=== PATIENT | male | born 1990 | race Caucasian/White ===

== ENCOUNTER 2017-08-29 10:08 | Outpatient (CLI) | payer BC | END 2017-08-29 10:09 | disposition home or self-care (01) | LOC: BICULT 10:08 | PROVIDERS: ATTEND Internal Medicine Rheumatology | DX: R74.8 Abnormal levels of other serum enzymes (principal) | CPT/HCPCS: 76705 ==

== ENCOUNTER 2017-10-04 09:36 | Outpatient (CLI) | payer BC ==
[2017-10-04] MEDS ORDERED: ISOVUE-370 76%-LOCM 1 ML ONE (13:54)
== END 2017-10-04 09:37 | disposition home or self-care (01) ==
LOC: BICCT 09:36
PROVIDERS: ATTEND Family Medicine
DX: M54.5 Low back pain (principal)
CPT/HCPCS: 74178

== ENCOUNTER 2018-06-14 09:14 | Emergency (ER) | payer BC ==
[2018-06-14 10:27] LABS: #Eosinphils 0.1 thou/uL (0.0-0.7); #Lymphocytes 1.7 thou/uL (1.20-3.40); #Monocytes 0.5 thou/uL (0.11-0.59); #Neutrophils 5.6 thou/uL (1.40-6.50); %Basophils 0.1 % (0.0-1.0); %Eosinophils 0.9 % (0.0-10.0); %Lymphocytes 21.2 % (21.0-51.0); %Monocytes 6.6 % (0.0-10.0); %Neutrophils 71.3 % (42.0-75.0); Bilirubin Negative (Negative); Blood, Urine Negative (Negative); Clarity CLEAR (Clear); Glucose, Urine (Dipstick) Negative (Negative); Hemoglobin 14.9 g/dL (14.0-18.0); Leukocyte Negative (Negative); Mean Corpuscular HGB CONC 35.8 g/dL (32.0-36.0); Mean Corpuscular Hemoglobin 30.5 pg (27.0-31.0); Mean Corpuscular Volume 85.2 fL (78.0-98.0); Mean Platelet Volume 8.6 fL (7.4-10.4); Nitrite Negative (Negative); Platelet Count 266 thou/uL (130-400); Protein, Urine (Dipstick) Negative (Neg-Trace); RBC Distribution Width 11.4 % (11.5-14.5); Red Blood Cell (RBC) Count 4.89 mill/uL (4.70-6.10); Specific Gravity, Urine 1.026 (1.002-1.036); Urobilinogen 0.2 mg/dL (0.2-1.0); White Blood Cell (WBC) Count 7.9 thou/uL (4.8-10.8); pH, Urine 6.5 (5.0-9.0)
--- NOTE | 2018-06-14 10:42 | CT ---
Noncontrast CT abdomen and pelvis 06/14/2018 HISTORY: Right flank pain. COMPARISON: 10/22/2016. FINDINGS: There is a retrocecal appendix, and the appendix extends into the right upper quadrant and is adjacen t to the medial aspect of the right hepatic lobe. The distal portion of the appendix measures 10 mm i n diameter, and the shetty of the appendix appear to be thickened. There is minimal adjacent periappen diceal inflammatory changes also identified. Findings are suggestive of early acute appendicitis. No free intraperitoneal gas or periappendiceal fluid collection is seen. No renal or ureteral calculi are seen bilaterally, and there is no evidence of hydronephrosis. The visualized lung bases, liver, spleen, pancreas, bilateral adrenal glands, kidneys, and decompress ed urinary bladder demonstrate a grossly normal nonenhanced CT appearance. No free fluid or free intraperitoneal gas is seen in the abdomen or pelvis. Osseous structures have a normal CT appearance. IMPRESSION: 1. Findings suggestive of early acute appendicitis. 2. Above findings discussed with Dr. Bo in the emergency Department on 06/14/2018 at 1036 hours.
[2018-06-14 10:46] LABS: Anion Gap 12 mmol/L (10-20); BUN (Urea Nitrogen) 19 mg/dL (8.9-20.6); Calc. Creatinine Clearance 0 mL/min (70-130); Calcium 9.6 mg/dL (7.8-10.44); Carbon Dioxide 27 mmol/L (22-29); Chloride 104 mmol/L (98-107); Estimated GFR-MDRD Greater than 90; Glucose 102 mg/dL (70-105); Sodium 139 mmol/L (136-145)
[2018-06-14] MEDS ORDERED: Ondansetron PF 4 MG/2 ML Vial ONE ×2 (10:52→14:44)
[2018-06-14] MEDS ORDERED: Morphine 4 MG/ML VIAL ONE (10:53)
[2018-06-14] MEDS ORDERED: Piperacillin/Tazobactam 4.5 GM VIAL ONE (11:25)
[2018-06-14] MEDS ORDERED: Bupivacaine/Epinephrine 0.25% 30 ML VIAL ONE (12:01)
--- NOTE | 2018-06-14 12:02 | HP ---
HISTORY OF PRESENT ILLNESS: Mr. Good is a 27-year-old man, who presented to the Emergency Department with a 24-hour history of right flank pain. The patient admits some nausea, but no emesis. He admits to constipation. No diarrhea. The patient denies any fevers or chills. The patient presented to the Emergency Department thinking he had kidney stones. Workup today included a CT scan of the abdomen and pelvis, following which the patient was referred to General Surgery Service. At the time of my evaluation, he rates his pain at 7/10. He has a history of chronic back pain. 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 Other pertinent past medical history includes chronic depression. PAST SURGICAL HISTORY: Pertinent for left shoulder and right knee arthroplasties. The patient is an [employer] and is currently employed as a property officer. He is , lives at home with his . He denies any cigarette smoking or illicit drug abuse. Admits to occasional intake of ethanol in moderate amounts. FAMILY HISTORY: Pertinent for some maternal relatives with gynecological cancer. Otherwise, denies any family history of diabetes mellitus, hypertension, heart disease, or inflammatory bowel disease. PRE-HOSPITAL MEDICATIONS: Includes; 1. Tramadol extended release 300 mg p.o. t.i.d. p.r.n. 2. Tylenol No. 3, which he takes occasionally for back pain. 3. He also takes fluoxetine for chronic depression. ALLERGIES: THE PATIENT DENIES ANY KNOWN DRUG ALLERGIES. REVIEW OF SYSTEMS: Ten-point review of systems essentially unremarkable except as stated in past medical history and chief complaint. PHYSICAL EXAMINATION: GENERAL: This reveals a 27-year-old normally developed man, who is otherwise coherent, interactive, and appears stated age. The patient is alert and oriented x3, appears to be in no acute distress at the time of my evaluation. VITAL SIGNS: Today include blood pressure 131/77, pulse is 74, respiratory rate is 18, temperature is 98.8 degrees Fahrenheit, and oxygen saturation 97% on room air. HEENT: Reveals normocephalic and atraumatic. Pupils are equal, round, and reactive to light and accommodation. HEART: Reveals regular rate and rhythm. No murmurs or gallops auscultated. LUNGS: Clear to auscultation bilaterally. Breathing, regular and nonlabored. ABDOMEN: Soft and moderately distended. He has right lower quadrant tenderness at McBurney's. He has a positive Rovsing sign. Liver and spleen nonpalpable below costal margin. EXTREMITIES: Reveal 2+ radial and pedal pulses bilaterally. No ankle edema is present. NEUROLOGIC: Reveals no focal deficits present. LABORATORY FINDINGS: Today includes a CBC with 7900 white blood cells and hemoglobin and hematocrit of 14.9 and 41.7 respectively. Platelet count is 266,000. Metabolic profile; sodium 139, potassium 4.0, chloride is 104, bicarb is 27, BUN 19, creatinine 0.86, and glucose 102. Urinalysis is essentially unremarkable. I have personally reviewed the CT scan of the abdomen and pelvis, which is remarkable for dilated retrocecal appendix with periappendiceal fat stranding. There is no pneumoperitoneum or significant free fluid present. IMPRESSION: Acute retrocecal appendicitis. PLAN: Laparoscopic appendectomy. Above findings and plan has been discussed with the patient. Informed him of the risks and benefits of the proposed surgery to include, but not limited to bleeding, infection, injury to bowel or surrounding structures. The patient indicates understanding of information I have given him today. I have answered his questions. The patient is going to consent for this admission and surgical intervention. Job ID: [id number]
[2018-06-14] MEDS ORDERED: Fentanyl 100 MCG/2 ML VIAL ONE ×4 (12:10→15:34)
[2018-06-14] MEDS ORDERED: Lidocaine 2% Jelly 5 ML TUBE ONE (12:12)
[2018-06-14] MEDS ORDERED: Famotidine/PF 20 mg/2ml Vial ONE (12:19)
[2018-06-14] MEDS ORDERED: Midazolam HCl 2 mg/2 ml Vial ONE (12:25)
[2018-06-14] MEDS ORDERED: HYDROmorphone 2 MG/ML VIAL ONE (14:15)
[2018-06-14] MEDS ORDERED: Glycopyrrolate 0.2 MG/ML 5 ML SYRINGE ONE (14:44)
[2018-06-14] MEDS ORDERED: Ketorolac Tromethamine 30 MG/ML VIAL ONE (14:44)
[2018-06-14] MEDS ORDERED: PROPOFOL 200 MG/20 ML VIAL ONE (14:44)
[2018-06-14] MEDS ORDERED: PHENYLEPHRINE-NS 100 MCG/ML 10 ML SYRINGE ONE (14:44)
[2018-06-14] MEDS ORDERED: Dexamethasone 20 MG/5 ML VIAL ONE (14:44)
[2018-06-14] MEDS ORDERED: Rocuronium Bromide 10 MG/ML (10ML VIAL) ONE (14:44)
[2018-06-14] MEDS ORDERED: ePHEDrine 50 MG/ML VIAL ONE (14:44)
[2018-06-14] MEDS ORDERED: Lidocaine 1% PF 5 ML VIAL ONE (14:44)
--- NOTE | 2018-06-14 16:59 | OP ---
DATE OF PROCEDURE: 06/14/2018 PREOPERATIVE DIAGNOSES: Acute retrocecal appendicitis with localized peritonitis. POSTOPERATIVE DIAGNOSES: Acute retrocecal appendicitis with localized peritonitis. OPERATION PERFORMED: Laparoscopic appendectomy. ANESTHESIA: General endotracheal. ESTIMATED BLOOD LOSS: 10 mL. FLUIDS GIVEN: 1600 mL crystalloids. COUNTS: Sponge and instrument counts were verified as correct x2. COMPLICATIONS: None apparent to operation. INDICATIONS FOR OPERATION: This is a 27-year-old man, who presented with a 24-hour history of right flank pain. Clinical radiographic examination was consistent with acute retrocecal appendicitis without evidence of perforation. The patient was brought to the operating room for appendectomy. Findings are consistent with a retrocecal almost right upper quadrant positioned appendix with the tip of the appendix abutting the gallbladder. No evidence of perforation. DESCRIPTION OF PROCEDURE: Informed consent was obtained from the patient, he was brought to the operating room and placed in supine position. Following general anesthesia, abdomen was sterilely prepped and draped in usual fashion. The skin below the umbilicus was infiltrated with 0.25% Marcaine with epinephrine. A small curvilinear infraumbilical incision was made using 11 scalpel. Umbilical stalk grasped with Nathen and elevated. Veress needle was inserted through the incision and placed in the peritoneal cavity through which the abdomen was insufflated with 3 L of CO2 gas. Intraabdominal pressure was noted at 2 mmHg. Following abdominal insufflation, Veress needle was removed and a 5 mm trocar introduced using a Visiport under laparoscopy. Laparoscopy confirmed proper placement of the port, no injuries to underlying structures. Additional laparoscopy revealed the right lower quadrant with omental and small bowel adhesions to the right lateral gutter. Under direct laparoscopy, two 5 mm suprapubic and left lower quadrant ports were placed after the overlying skin were infiltrated 0.25% Marcaine with epinephrine. Appropriate incision was made. The patient was placed in a Trendelenburg position, rotated to his left. I then used a Postiniige grasper through the left lower quadrant port to bluntly take down omental adhesions to reveal the distal ileum, which was completely adhered to the right lateral gutter. It was taken down sharply using Endo Avila. Once the distal ileum was mobilized medially, small bowel was run from the ileocecal junction to proximal 2 feet finding no Meckel diverticulum. A retrocecal appendix was then traced to the right upper quadrant and was bluntly dissected free from surrounding structures. Using Mindy type of ligature device, the mesoappendix was then serially divided with good hemostasis. Appendix was divided at the appendiceal-cecal junction between endo-loops. The appendix was delivered of the abdominal cavity using the EndoCatch. Operative site was inspected for good hemostasis. Finding no other pathology, the fascia of the left lower quadrant port was closed using 0 Vicryl suture and Endoclosure device on the laparoscopy. Abdomen was desufflated. All ports and instruments were removed and accounted. Skin incisions closed using 4-0 Monocryl suture in subcuticular fashion. Dermabond was applied over incisional closure. The patient tolerated the operation without any apparent complication and was returned to recovery room in satisfactory condition. Job ID: [id number]
== END 2018-06-14 17:00 | disposition home or self-care (01) ==
LOC: ERS 09:14
DX: K35.80 Unspecified acute appendicitis (principal); J45.909 Unspecified asthma, uncomplicated; Z79.899 Other long term (current) drug therapy
CPT/HCPCS: 74176; 80048; 81003; 85025; 87086; 88304; 96374; 96375; J0131; J1100; J1170; J1885; J2001; J2250; J2270; J2405; J2543; J2704; J3010; J3490; S0028

== ENCOUNTER 2019-02-18 12:56 | Emergency (ER) | payer BC | END 2019-02-18 14:32 | disposition left against medical advice (07) | LOC: ERS 12:56 | DX: Z53.21 Procedure and treatment not carried out due to patient leaving prior to being seen by health care provider (principal) ==

== ENCOUNTER 2019-02-19 14:03 | Outpatient (CLI) | payer BC ==
--- NOTE | 2019-02-19 14:40 | RAD ---
EXAM: XR Pelvis AP STANDARD PROVIDED CLINICAL HISTORY: Ankylosing spondylitis. COMPARISON: CT abdomen and pelvis on 06/14/2018 FINDINGS: Sacroiliac joints have a symmetric appearance bilaterally, and the sacroiliac joint spaces are symmet maggy in appearance. There is no evidence of fusion involving either sacroiliac joint. No fracture or dislocation is seen. A calcific density is seen just superior to the right greater trochanter which w as also seen on the prior CT exam. IMPRESSION: No acute osseous abnormality. Sacroiliac joints are symmetric in appearance bilaterally without findi ngs to suggest fusion of either sacroiliac joint.
== END 2019-02-19 14:04 | disposition home or self-care (01) ==
LOC: BICRAD 14:03
PROVIDERS: ATTEND Physician Assistant
DX: M45.9 Ankylosing spondylitis of unspecified sites in spine (principal)
CPT/HCPCS: 72170

== ENCOUNTER 2019-02-23 13:21 | Outpatient (CLI) | payer BC ==
--- NOTE | 2019-02-23 14:14 | MRI ---
EXAM: MRI Lumbar Spine WO Con PROVIDED CLINICAL HISTORY: Back pain COMPARISON: None FINDINGS: 5 lumbar vertebral bodies are assumed. Lumbar alignment appears normal. Vertebral body heights appear maintained. Intervertebral disc space heights appear maintained. The conus medullaris is normal in signal and terminates at an appropriate level. Visualized extraspinal soft tissues appear unremarkabl e. Regional marrow and muscular signal appear normal. There is no significant central canal or foraminal narrowing apparent throughout. Mild facet arthritis bilaterally at L3-4. IMPRESSION: No significant central canal or foraminal narrowing apparent.
== END 2019-02-23 13:22 | disposition home or self-care (01) ==
LOC: TBSIIMAG 13:21
PROVIDERS: ATTEND Physician Assistant
DX: M45.9 Ankylosing spondylitis of unspecified sites in spine (principal)
CPT/HCPCS: 72148

== ENCOUNTER 2019-03-21 13:00 | Emergency (ER) | payer BC ==
--- NOTE | 2019-03-21 14:12 | RAD ---
EXAM: Chest 2 views: HISTORY: Hypertension and dizziness COMPARISON: 03/01/2008 FINDINGS: There is a normal-sized cardiomediastinal silhouette. There is no evidence of consolidation, mass, or pleural effusion. The bones are unremarkable. IMPRESSION: No evidence of acute cardiopulmonary disease
[2019-03-21 14:17] LABS: #Eosinphils 0.1 thou/uL (0.0-0.7); #Lymphocytes 2.5 thou/uL (1.20-3.40); #Monocytes 0.6 thou/uL (0.11-0.59); #Neutrophils 4.7 thou/uL (1.40-6.50); %Basophils 0.5 % (0.0-1.0); %Eosinophils 1.8 % (0.0-10.0); %Lymphocytes 31.4 % (21.0-51.0); %Monocytes 7.8 % (0.0-10.0); %Neutrophils 58.5 % (42.0-75.0); Hemoglobin 13.9 g/dL (14.0-18.0); Mean Corpuscular HGB CONC 34.6 g/dL (32.0-36.0); Mean Corpuscular Hemoglobin 29.7 pg (27.0-31.0); Mean Corpuscular Volume 85.8 fL (78.0-98.0); Mean Platelet Volume 8.2 fL (7.4-10.4); Platelet Count 266 thou/uL (130-400); RBC Distribution Width 12.3 % (11.5-14.5); Red Blood Cell (RBC) Count 4.67 mill/uL (4.70-6.10); White Blood Cell (WBC) Count 8.1 thou/uL (4.8-10.8)
[2019-03-21 14:41] LABS: ALT (SGPT) 17 U/L (8-55); AST (SGOT) 15 U/L (5-34); Albumin 4.3 g/dL (3.5-5.0); Alkaline Phosphatase 70 U/L (40-110); Anion Gap 12 mmol/L (10-20); BUN (Urea Nitrogen) 12 mg/dL (8.9-20.6); Bilirubin, Total 0.3 mg/dL (0.2-1.2); CK (CPK) 60 U/L (30-200); Calc. Creatinine Clearance 0 mL/min (70-130); Calcium 9.1 mg/dL (7.8-10.44); Carbon Dioxide 27 mmol/L (22-29); Chloride 106 mmol/L (98-107); Estimated GFR-MDRD Greater than 90; Globulin 3.1 g/dL (2.4-3.5); Glucose 89 mg/dL (70-105); Protein, Total 7.4 g/dL (6.0-8.3); Sodium 141 mmol/L (136-145)
[2019-03-21] MEDS ORDERED: HYDROcodone/Acetaminophen 10/325 mg Tablet ONE (15:15)
--- NOTE | 2019-03-24 10:01 | EKG ---
Test Reason : Blood Pressure : / mmHG Vent. Rate : 101 BPM Atrial Rate : 101 BPM P-R Int : 154 ms QRS Dur : 102 ms QT Int : 350 ms P-R-T Axes : 028 009 023 degrees QTc Int : 453 ms Sinus tachycardia Cannot rule out Anterior infarct , age undetermined Abnormal ECG Confirmed by CHARLEE BRADLEY D.O. ([id number]), assignment desk editor BENTLEY GARCIA ([id number]) on 03/24/2019 10:01:02 AM Referred By: Confirmed By:CHARLEE BRADLEY D.O.
== END 2019-03-21 15:24 | disposition home or self-care (01) ==
LOC: ERS 13:00
DX: I10 Essential (primary) hypertension (principal); F32.9 Major depressive disorder, single episode, unspecified; M19.90 Unspecified osteoarthritis, unspecified site
CPT/HCPCS: 36415; 71046; 80053; 82550; 84484; 85025; 93005; 96360

== ENCOUNTER 2020-03-10 00:36 | Emergency (ER) | payer OTHER ==
[2020-03-10] MEDS ORDERED: Diazepam 5 MG TAB ONE (01:35)
[2020-03-10] MEDS ORDERED: Ketorolac Tromethamine 30 MG/ML VIAL ONE (01:35)
[2020-03-10] MEDS ORDERED: Morphine 4 MG/ML VIAL ONE (01:35)
== END 2020-03-10 02:13 | disposition home or self-care (01) ==
LOC: ERS 00:36
DX: G89.29 Other chronic pain (principal); M54.5 Low back pain; Z79.899 Other long term (current) drug therapy; Z79.891 Long term (current) use of opiate analgesic
CPT/HCPCS: 96372; 99283; J1885; J2270

== ENCOUNTER 2020-03-24 10:34 | Outpatient (CLI) | payer OTHER ==
--- NOTE | 2020-03-24 12:02 | MRI ---
MR the lumbar spine without contrast: 03/24/2020 History: Low back pain with left lower extremity radiculopathy COMPARISON: 02/23/2019 TECHNIQUE: Multiplanar multisequence MR images were obtained of lumbar spine without IV contrast FINDINGS: On the basis of 5 lumbar type vertebral bodies, conus medullaris terminates at theT12 level. Sagittal STIR imaging demonstrates no focal area of osseous marrow edema. T12-L1:Intervertebral disc height and signal intensity within normal limits with no significant centr al canal or neural foraminal stenosis. L1-2:Intervertebral disc height and signal intensity within normal limits with no significant central canal or neural foraminal stenosis. L2-3:Intervertebral disc height and signal intensity within normal limits with no significant central canal or neural foraminal stenosis. L3-4:Intervertebral disc height and signal intensity within normal limits. Mild bilateral facet hyper trophy with no significant central canal or neural foraminal stenosis. L4-5:There is new mild disc space narrowing and new disc desiccation. New mild disc bulge with a new small left paracentral disc protrusion which abuts the left L5 nerve root. Mild central canal stenosis/left lateral recess stenosis. No significant neural foraminal stenosis. L5-S1:Mild bilateral facet hypertrophy with no significant central canal or neural foraminal stenosis . Image retroperitoneal structures demonstrateno acute findings. IMPRESSION: Disc disease at L4-5 as detailed above, new when compared to the prior exam.
== END 2020-03-24 10:35 | disposition home or self-care (01) ==
LOC: BICMRI 10:34
PROVIDERS: ATTEND Specialist
DX: M51.16 Intervertebral disc disorders with radiculopathy, lumbar region (principal)
CPT/HCPCS: 72148

== ENCOUNTER 2020-04-17 09:29 | Day surgery (SDC) | payer OTHER ==
[2020-04-14 11:03] VITALS: BMI 33.7
[2020-04-17] MEDS ORDERED: Fentanyl 250 MCG/5 ML VIAL ONE (10:00)
[2020-04-17] MEDS ORDERED: Midazolam HCl 2 mg/2 ml Vial ONE (10:21)
[2020-04-17] MEDS ORDERED: Thrombin 5000 UNITS/5 ML VIAL ONE (10:39)
[2020-04-17] MEDS ORDERED: Ondansetron PF 4 MG/2 ML Vial ONE (13:02)
[2020-04-17] MEDS ORDERED: Glycopyrrolate 0.2 MG/ML 5 ML SYRINGE ONE (13:02)
[2020-04-17] MEDS ORDERED: Rocuronium Bromide 10 MG/ML (10ML VIAL) ONE (13:02)
[2020-04-17] MEDS ORDERED: PROPOFOL 200 MG/20 ML VIAL ONE (13:02)
[2020-04-17] MEDS ORDERED: Lidocaine 1% PF 5 ML VIAL ONE (13:02)
[2020-04-17] MEDS ORDERED: PHENYLEPHRINE-NS 100 MCG/ML 10 ML SYRINGE ONE (13:02)
[2020-04-17] MEDS ORDERED: Dexamethasone 20 MG/5 ML VIAL ONE (13:02)
[2020-04-17] MEDS ORDERED: HYDROmorphone 0.5 MG/0.5 ML SYRINGE ONE ×2 (13:32→13:52)
[2020-04-17] MEDS ORDERED: tiZANidine HCl 4 MG TAB PO PRN (13:33)
[2020-04-17] MEDS ORDERED: Acetaminophen/Codeine 30-300mg Tablet PO PRN (13:33)
[2020-04-17] MEDS ORDERED: traMADol HCl 50 MG TAB PO PRN (13:33)
[2020-04-17] MEDS ORDERED: Milk Of Magnesia 30 ML UDCUP PO PRN (13:33)
[2020-04-17] MEDS ORDERED: Mag-Al 1200 mg/1200 mg/30 ML UDCUP PO PRN (13:33)
[2020-04-17] MEDS ORDERED: Acetaminophen 325 MG TAB PO PRN (13:33)
[2020-04-17] MEDS ORDERED: Morphine 2 MG/ML VIAL SLOW IVP PRN (13:33)
[2020-04-17] MEDS ORDERED: Bisacodyl 10 MG SUPP PR PRN (13:33)
[2020-04-17] MEDS ORDERED: Meperidine HCl/PF 25 MG/ML VIAL ONE (13:42)
[2020-04-17] MEDS ORDERED: Promethazine HCl 25 MG/ML VIAL ONE (13:42)
[2020-04-17] MEDS ORDERED: Non-Formulary Medication 1 EACH PO PRN (13:55)
[2020-04-17] MEDS ORDERED: HYDROmorphone 2 MG/ML VIAL SLOW IVP PRN (14:00)
[2020-04-17] MEDS ORDERED: Ondansetron HCl/PF 4 MG/2 ML Vial IVP PRN (14:00)
[2020-04-17] MEDS ORDERED: Meperidine HCl/PF 25 MG/ML VIAL IV PRN (14:00)
[2020-04-17] MEDS ORDERED: PACU-Morphine 4MG/ML VIAL SLOW IVP PRN (14:00)
[2020-04-17] MEDS ORDERED: Promethazine HCl 25 MG/ML VIAL IM/IV PRN (14:00)
[2020-04-17] MEDS ORDERED: Morphine Sulfate 2 MG/ML SYRINGE SLOW IVP PRN (14:00)
[2020-04-17] MEDS ORDERED: tiZANidine HCl 4 MG TAB ONE (14:12)
[2020-04-17] MEDS ORDERED: Morphine 4 MG/ML VIAL ONE (14:19)
[2020-04-17] MEDS ORDERED: Morphine 2 MG/ML VIAL ONE ×2 (15:33→17:26)
[2020-04-17] MEDS ORDERED: Ondansetron PF 4 MG/2 ML Vial IVP SCH (18:00)
[2020-04-17] MEDS ORDERED: CEFAZOLIN 2 GM in Premix Bag 1 BAG IVPB SCH (18:00)
[2020-04-17] MEDS: Ondansetron PF 4 MG/2 ML Vial IVP SCH (19:54)
[2020-04-17] MEDS: CEFAZOLIN 2 GM in Premix Bag 1 BAG IVPB SCH (19:54)
[2020-04-17] MEDS: Sodium Chloride 0.9% 1,000 ML IV SCH (19:55)
[2020-04-17] MEDS: HYDROcodone/Acetaminophen 7.5/325 mg Tablet PO PRN (23:39)
[2020-04-18] MEDS: HYDROcodone/Acetaminophen 7.5/325 mg Tablet PO PRN ×2 (03:40→08:06)
[2020-04-18] MEDS: CEFAZOLIN 2 GM in Premix Bag 1 BAG IVPB SCH (03:42)
[2020-04-18] MEDS: Ondansetron PF 4 MG/2 ML Vial IVP SCH ×2 (03:42→08:06)
[2020-04-18 04:19] VITALS: TEMP 98.1
--- NOTE | 2020-04-18 06:19 | OP ---
DATE OF PROCEDURE: 04/17/2020 LOCATION: OR-12. SOLE ROUNDER: Alexa Gruber PA-C PREPROCEDURE DIAGNOSES: Left L5 radiculopathy and left L4-L5 disk extrusion. POSTPROCEDURE DIAGNOSES: Left L5 radiculopathy and left L4-L5 disk extrusion. PROCEDURES PERFORMED: 1. Left L4-L5 hemilaminotomy, foraminotomy, and diskectomy. 2. Use of operative microscope for microdissection. DESCRIPTION OF PROCEDURE: After informed consent was obtained from the patient, the patient was brought to the OR. Proper patient, pause, and identification were carried out. He was placed under excellent general endotracheal anesthesia and positioned prone on the OR table. All appropriate points were padded. We identified the L4-L5 dorsal spines and a linear leonardo was made over this area. This region was sterilely cleansed, prepared, and draped. Proper patient, pause, and identification were carried out. The wound was then opened with a combination of sharp, monopolar, and blunt dissection, proceeded to expose the left L4-L5 scarlett-lamina. Localization film confirmed area of interest and performed a left L4-L5 hemilaminotomy, foraminotomy, and diskectomy with the use of operative microscope for microdissection with excellent decompression of the L5 nerve root. Copious irrigation occurred throughout as did maximizing hemostasis. The wound was then closed in anatomic layers following sprinkling of vancomycin powder. The patient then emerged from anesthesia. Job ID: [id number]
[2020-04-18] MEDS: Sodium Chloride 0.9% 1,000 ML IV SCH (07:58)
[2020-04-18] MEDS ORDERED: Folic Acid 1 MG TAB PO SCH (09:00)
--- NOTE | 2020-04-18 09:35 | PRG ---
DATE OF SERVICE: 04/18/2020 Mr. oGod is postoperative day #1 following left L4-L5 hemilaminotomy and diskectomy. He has had resolution of his leg pain. He has met criteria for discharge with intact neurologic strength. We will plan for discharge. Job ID: [id number]
[2020-04-18 11:15] VITALS: BP 104/66
[2020-04-18] MEDS ORDERED: Rosuvastatin 5 MG TAB PO SCH (21:00)
--- NOTE | 2020-04-20 09:51 | DIS ---
DATE OF ADMISSION: 04/17/2020 DATE OF DISCHARGE: 04/18/2020 DIAGNOSIS: Lumbar herniated nucleus pulposus, lumbar radiculopathy. PROCEDURES: Left L4-L5 hemilaminotomy, foraminotomy, and diskectomy on April 17, 2020. CONSULTS: None. HOSPITAL COURSE: Mr. Good is a 29-year-old gentleman who is admitted following the above procedure for postoperative monitoring and pain control. While he reported postoperative low back pain, he endorsed resolution of his left leg pain. His lower extremity strength is intact. He was able to ambulate without difficulty and has been voiding appropriately. He was discharged home in stable condition. Postoperative restrictions and wound care instructions were provided. Postoperative pain medications and muscle relaxants were sent to the patient's pharmacy. He will follow up with our team on an outpatient basis in the upcoming weeks for reevaluation and wound check. He will call our office sooner with any questions or concerns. Job ID: [id number] MTDD
== END 2020-04-18 11:30 | disposition home or self-care (01) ==
LOC: SDC 09:29 → SURG A 13:33 → SDC 04-18 11:30
PROVIDERS: ATTEND Surgery
PROC: 0ST20ZZ Resection of Lumbar Vertebral Disc, Open Approach (ICD-10-PCS; principal; 2020-04-17)
DX: M51.16 Intervertebral disc disorders with radiculopathy, lumbar region (principal); Z79.899 Other long term (current) drug therapy; Z87.891 Personal history of nicotine dependence
CPT/HCPCS: 76000; J0690; J1100; J1170; J2175; J2250; J2270; J2405; J2550; J2704; J3010; J3370

== ENCOUNTER 2021-03-10 19:09 | Observation (INO) | payer OTHER, SELFPAY ==
[2021-03-10 19:32] LABS: Base Excess (BEa) -1.8 mEq/L (-2.0 to +3.0); CO2 Tension 34.5 mmHg (35.0-45.0); Calcium, Ionized (arterial) 1.11 mmol/L (1.12-1.30); Carboxyhemoglobin (COHb) 2.8 gm% (0.0-3.0); Hemoglobin (Hb) 12.9 g/dL (14.0-18.0); O2 Tension (PaO2), arterial 168.6 mmHg (80.0-100.0); Potassium - ABG Lab 3.69 mmol/L (3.70-5.30); pH, Arterial 7.42 (7.35-7.45)
[2021-03-10 19:33] LABS: Puncture Site LRA
[2021-03-10 19:34] LABS: ALV-art Gradient 144.775 mmHg (0-20)
[2021-03-10 19:44] LABS: #Eosinphils 0.1 thou/uL (0.0-0.7); #Lymphocytes 2.8 thou/uL (1.20-3.40); #Monocytes 0.6 thou/uL (0.11-0.59); #Neutrophils 5.1 thou/uL (1.40-6.50); %Basophils 0.4 % (0.0-1.0); %Eosinophils 1.5 % (0.0-10.0); %Lymphocytes 32.4 % (21.0-51.0); %Monocytes 6.8 % (0.0-10.0); Mean Corpuscular HGB CONC 36.1 g/dL (32.0-36.0); Mean Corpuscular Hemoglobin 30.6 pg (27.0-31.0); Mean Corpuscular Volume 84.8 fL (78.0-98.0); Mean Platelet Volume 8.1 fL (7.4-10.4); Platelet Count 287 thou/uL (130-400); RBC Distribution Width 12.1 % (11.5-14.5); Red Blood Cell (RBC) Count 4.24 mill/uL (4.70-6.10); White Blood Cell (WBC) Count 8.6 thou/uL (4.8-10.8)
[2021-03-10 20:09] LABS: ALT (SGPT) 31 U/L (8-55); AST (SGOT) 26 U/L (5-34); Albumin 4.1 g/dL (3.5-5.0); Alkaline Phosphatase 54 U/L (40-110); Anion Gap 14 mmol/L (10-20); BUN (Urea Nitrogen) 14 mg/dL (8.9-20.6); Bilirubin, Total 0.4 mg/dL (0.2-1.2); Calc. Creatinine Clearance 0 mL/min (70-130); Carbon Dioxide 23 mmol/L (22-29); Chloride 104 mmol/L (98-107); Globulin 3.5 g/dL (2.4-3.5); Glucose 115 mg/dL (70-105); Potassium 3.8 mmol/L (3.5-5.1); Protein, Total 7.6 g/dL (6.0-8.3); Sodium 137 mmol/L (136-145)
[2021-03-10] MEDS ORDERED: Ketorolac Tromethamine 30 MG/ML VIAL ONE (20:24)
[2021-03-10] MEDS ORDERED: Morphine 4 MG/ML VIAL ONE ×2 (20:24→22:37)
[2021-03-10] MEDS ORDERED: Ondansetron PF 4 MG/2 ML Vial ONE (20:24)
[2021-03-10] MEDS ORDERED: hydrALAZINE 20 MG/ML VIAL SLOW IVP PRN (21:35)
[2021-03-10] MEDS ORDERED: Ondansetron PF 4 MG/2 ML Vial IVP PRN (21:35)
[2021-03-10] MEDS ORDERED: Sodium Chloride 0.9% 1,000 ML IV SCH (21:45)
[2021-03-10] MEDS ORDERED: Dexamethasone 10 MG/ML VIAL ONE (22:37)
[2021-03-10] MEDS ORDERED: Calcium Chloride 1 GM/10 ML Abboject SYRINGE IVP SCH (23:00)
[2021-03-11] MEDS ORDERED: Acetaminophen/Codeine 30-300mg Tablet ONE ×2 (01:22→09:25)
[2021-03-11] MEDS ORDERED: Calcium Chloride 1 GM/10 ML Abboject SYRINGE ONE (01:22)
[2021-03-11] MEDS ORDERED: Dexamethasone 10 MG/ML VIAL ONE ×2 (01:22→07:48)
[2021-03-11] MEDS: Acetaminophen/Codeine 30-300mg Tablet PO SCH ×3 (01:28→12:48)
[2021-03-11] MEDS: Dexamethasone 4 mg/ml Vial SLOW IVP SCH ×3 (01:35→12:50)
[2021-03-11] MEDS ORDERED: Lorazepam 0.5 MG TAB PO SCH (03:45)
[2021-03-11] MEDS ORDERED: Lorazepam 1 MG TAB ONE (04:33)
[2021-03-11 06:02] LABS: #Monocytes 0.2 thou/uL (0.11-0.59); #Neutrophils 6.2 thou/uL (1.40-6.50); %Basophils 0.1 % (0.0-1.0); %Lymphocytes 13.7 % (21.0-51.0); %Monocytes 2.1 % (0.0-10.0); Hemoglobin 12.6 g/dL (14.0-18.0); Mean Corpuscular HGB CONC 34.6 g/dL (32.0-36.0); Mean Corpuscular Hemoglobin 29.6 pg (27.0-31.0); Mean Corpuscular Volume 85.4 fL (78.0-98.0); Platelet Count 284 thou/uL (130-400); RBC Distribution Width 12.3 % (11.5-14.5); Red Blood Cell (RBC) Count 4.27 mill/uL (4.70-6.10); White Blood Cell (WBC) Count 7.3 thou/uL (4.8-10.8)
[2021-03-11 06:19] LABS: Phosphorus 3.2 mg/dL (2.3-4.7)
[2021-03-11 06:21] LABS: Anion Gap 12 mmol/L (10-20); BUN (Urea Nitrogen) 12 mg/dL (8.9-20.6); Calc. Creatinine Clearance 0 mL/min (70-130); Carbon Dioxide 23 mmol/L (22-29); Chloride 106 mmol/L (98-107); Glucose 146 mg/dL (70-105); Magnesium 1.9 mg/dL (1.6-2.6); Potassium 4.7 mmol/L (3.5-5.1); Sodium 136 mmol/L (136-145)
[2021-03-11] MEDS ORDERED: Folic Acid 1 MG TAB PO SCH (09:00)
[2021-03-11] MEDS ORDERED: Famotidine 20 MG TAB PO SCH (09:00)
[2021-03-11] MEDS ORDERED: Rosuvastatin 5 MG TAB PO SCH (09:00)
[2021-03-11] MEDS ORDERED: Folic Acid 1 MG TAB ONE (09:26)
[2021-03-11] MEDS ORDERED: Famotidine 20 MG TAB ONE (09:26)
[2021-03-11] MEDS ORDERED: traMADol HCl 50 MG TAB PO PRN (13:34)
[2021-03-11] MEDS ORDERED: Ibuprofen 800 MG TAB PO PRN (13:36)
[2021-03-11 14:35] VITALS: BMI 34.0
[2021-03-11] MEDS ORDERED: traMADol HCl 50 MG TAB PO SCH (15:00)
[2021-03-11 16:39] VITALS: BP 117/60; TEMP 97.4
[2021-03-11] MEDS ORDERED: Acetaminophen 500 MG TAB PO SCH (18:00)
[2021-03-12] MEDS ORDERED: FLU VACC QS2021-22(6MOS UP)/PF 60 MCG/0.5 ML SYRINGE IM ONE (09:00)
== END 2021-03-11 18:16 | disposition home or self-care (01) ==
LOC: ERS 19:09 → ERHOLD 21:35 → MSONC 03-11 10:49
PROVIDERS: ADMIT Specialist; ATTEND Specialist
DX: R09.02 Hypoxemia (principal); E83.51 Hypocalcemia; I11.9 Hypertensive heart disease without heart failure; M45.9 Ankylosing spondylitis of unspecified sites in spine; F41.9 Anxiety disorder, unspecified; F32.9 Major depressive disorder, single episode, unspecified; Z79.899 Other long term (current) drug therapy; X08.8XXA Exposure to other specified smoke, fire and flames, initial encounter
CPT/HCPCS: 36415; 36600; 71045; 80048; 80053; 82805; 83735; 84100; 85025; 93005; 94640; 96374; 96375; 96376; G0378; G0390; J1100; J1885; J2270; J2405; J7050; J7620

== ENCOUNTER 2022-01-08 08:57 | Outpatient (CLI) | payer BC | END 2022-01-08 08:58 | disposition home or self-care (01) | LOC: BICRAD 08:57 | PROVIDERS: ATTEND Internal Medicine Rheumatology | DX: M45.0 Ankylosing spondylitis of multiple sites in spine (principal) | CPT/HCPCS: 72052; 72100 ==

== ENCOUNTER 2023-07-12 11:32 | Outpatient (CLI) | payer BC ==
[2023-07-12 12:15] LABS: #Basophils 0.01 10x3/uL (0.0-0.2); #Eosinphils 0.08 10x3/uL (0.0-0.5); #Monocytes 0.35 10x3/uL (0.0-1.1); #Neutrophils 2.21 10x3/uL (1.5-8.4); %Basophils 0.2 % (0.0-2.0); %Eosinophils 1.5 % (0.0-6.0); %Lymphocytes 49.3 % (18.0-47.0); %Monocytes 6.7 % (0.0-10.0); %Neutrophils 42.1 % (40.0-75.0); Hematocrit 41.7 % (38.8-50.0); Hemoglobin 15.1 g/dL (13.5-17.5); Mean Corpuscular HGB CONC 36.2 g/dL (32.0-36.0); Mean Corpuscular Hemoglobin 29.4 pg (27.0-33.0); Mean Corpuscular Volume 81.3 fl (81.2-95.1); Mean Platelet Volume 11.2 fl (7.4-10.4); Platelet Count 257 10x3/uL (150-450); RBC Distribution Width 12.2 % (11.5-14.5); Red Blood Cell (RBC) Count 5.13 10x6/uL (4.32-5.72); White Blood Cell (WBC) Count 5.3 10x3/uL (3.5-10.5)
[2023-07-12 12:50] LABS: Anion Gap 15 mmol/L (10-20); BUN (Urea Nitrogen) 13 mg/dL (8.9-20.6); Calc. Creatinine Clearance 0 mL/min (70-130); Calcium 9.6 mg/dL (7.8-10.44); Carbon Dioxide 23 mmol/L (22-29); Chloride 105 mmol/L (98-107); Estimated GFR 118; Glucose 107 mg/dL (70-105); Potassium 3.9 mmol/L (3.5-5.1); Sodium 139 mmol/L (136-145)
== END 2023-07-12 11:33 | disposition home or self-care (01) ==
LOC: LABBT 11:32
PROVIDERS: ATTEND Orthopaedic Surgery
DX: Z01.812 Encounter for preprocedural laboratory examination (principal); M24.811 Other specific joint derangements of right shoulder, not elsewhere classified
CPT/HCPCS: 80048; 85025

== ENCOUNTER 2023-07-15 06:22 | Day surgery (SDC) | payer BC ==
[2023-07-12 11:49] VITALS: BMI 30.8
[2023-07-15] MEDS ORDERED: Vancomycin (BATCH) 1.5 GM/300 ML BAG ONE (08:20)
[2023-07-15] MEDS ORDERED: fentaNYL 50 mcg/mL 1 mL Vial ONE ×2 (08:39→09:19)
[2023-07-15] MEDS ORDERED: Midazolam HCl 2 mg/2 ml Vial ONE ×2 (08:39→09:19)
[2023-07-15] MEDS ORDERED: Ropivacaine 0.2% HCl/PF 20 ML ONE (08:40)
[2023-07-15] MEDS ORDERED: Ropivacaine 0.5% HCl/PF (150 MG/30 ML VIAL) ONE (08:40)
[2023-07-15] MEDS ORDERED: SUGAMMADEX SODIUM 200 MG/2 ML VIAL ONE ×2 (09:37→11:32)
[2023-07-15] MEDS ORDERED: PROPOFOL 20 ML ONE ×2 (09:37→09:47)
[2023-07-15] MEDS ORDERED: Ondansetron PF 4 MG/2 ML Vial ONE (09:38)
[2023-07-15] MEDS ORDERED: Rocuronium Bromide 10 MG/ML (10ML VIAL) ONE (09:38)
[2023-07-15] MEDS ORDERED: Dexamethasone 4 mg/ml Vial ONE (09:38)
[2023-07-15] MEDS ORDERED: Sodium Chloride 0.9% 250 ML 250 ML ONE (09:40)
[2023-07-15] MEDS ORDERED: Phenylephrine 10 MG/ML VIAL ONE (09:40)
[2023-07-15] MEDS ORDERED: Fentanyl 250 MCG/5 ML VIAL ONE (09:46)
[2023-07-15] MEDS ORDERED: CEFAZOLIN 2 GM VIAL ONE (09:48)
[2023-07-15] MEDS ORDERED: Sodium Chloride 0.9% 100 ML ONE (09:49)
[2023-07-15] MEDS ORDERED: Ropivacaine 0.2% 550 ML 550 ML NERVE BLCK SCH (10:00)
[2023-07-15] MEDS ORDERED: Zolpidem Tartrate 5 MG TAB PO PRN (10:00)
[2023-07-15] MEDS ORDERED: Ondansetron PF 4 MG/2 ML Vial IVP PRN (10:00)
[2023-07-15] MEDS ORDERED: Promethazine HCl 25 MG/ML VIAL IM PRN (10:00)
[2023-07-15] MEDS ORDERED: Lidocaine 1% PF 5 ML VIAL ONE (10:08)
== END 2023-07-15 13:52 | disposition home or self-care (01) ==
LOC: SDC 06:22
PROVIDERS: ATTEND Orthopaedic Surgery
PROC: 0RNJ0ZZ Release Right Shoulder Joint, Open Approach (ICD-10-PCS; principal; 2023-07-15)
PROC: 0LM10ZZ Reattachment of Right Shoulder Tendon, Open Approach (ICD-10-PCS; principal; 2023-07-15)
PROC: 0LS30ZZ Reposition Right Upper Arm Tendon, Open Approach (ICD-10-PCS; principal; 2023-07-15)
DX: M75.101 Unspecified rotator cuff tear or rupture of right shoulder, not specified as traumatic (principal); M85.611 Other cyst of bone, right shoulder; M24.811 Other specific joint derangements of right shoulder, not elsewhere classified; M75.31 Calcific tendinitis of right shoulder; J45.909 Unspecified asthma, uncomplicated; I10 Essential (primary) hypertension; F32.A Depression, unspecified; Z90.49 Acquired absence of other specified parts of digestive tract; Z79.899 Other long term (current) drug therapy
CPT/HCPCS: A4306; A6223; C1713; C1894; J1100; J2250; J2371; J2405; J2704; J2795; J3010; J3370; J3490; J7050